=== PATIENT | female | born 1990 | race Hispanic/Latino ===

== ENCOUNTER 2021-08-23 11:17 | Outpatient (CLI) | payer OTHER ==
[2021-08-23 14:17] LABS: Hemoglobin 13.5 g/dL (12.0-15.5); Mean Corpuscular HGB CONC 33.7 g/dL (32.0-36.0); Mean Corpuscular Hemoglobin 30.4 pg (27.0-33.0); Mean Corpuscular Volume 90.3 fl (81.6-98.3); Mean Platelet Volume 10.7 fl (7.4-10.4); Platelet Count 348 10x3/uL (150-450); RBC Distribution Width 14.6 % (11.5-14.5); Red Blood Cell (RBC) Count 4.44 10x6/uL (3.90-5.03); White Blood Cell (WBC) Count 9.5 10x3/uL (3.5-10.5)
[2021-08-23 14:44] LABS: SARS-CoV-2 NAA Rapid Test Not Detected (NotDetected)
[2021-08-23 14:46] LABS: HIV (1/2) Antibody/Antigen Non-Reactive (NonReactive); HIV 1/2 INDEX 0.08 S/CO (<1.00); Syphilis Antibody Nonreactive (Nonreactive); Syphilis Antibody Index 0.03 S/CO (<1.00 Non-Reactive)
== END 2021-08-23 11:18 | disposition home or self-care (01) ==
LOC: CSHLAB 11:17
PROVIDERS: ATTEND Family Medicine
DX: Z01.812 Encounter for preprocedural laboratory examination (principal); Z20.822 Contact with and (suspected) exposure to COVID-19; O32.1XX0 Maternal care for breech presentation, not applicable or unspecified
CPT/HCPCS: 85027; 86780; 86850; 86900; 86901; 87389; U0002

== ENCOUNTER 2021-08-24 08:59 | Inpatient (IN) | payer OTHER ==
[2021-08-24] MEDS ORDERED: Phenylephrine 40 MG/NS 250 ML 250 ML ONE (11:50)
[2021-08-24] MEDS ORDERED: Ondansetron PF 4 MG/2 ML Vial ONE (11:50)
[2021-08-24] MEDS ORDERED: Ketorolac Tromethamine 30 MG/ML VIAL ONE (11:50)
[2021-08-24] MEDS ORDERED: Metoclopramide HCl 10 MG/2 ML VIAL ONE (11:50)
[2021-08-24] MEDS ORDERED: Dexamethasone 4 mg/ml Vial ONE (11:50)
[2021-08-24] MEDS ORDERED: Oxytocin 10 UNITS/ML VIAL ONE ×2 (11:51→13:04)
[2021-08-24] MEDS ORDERED: Morphine PF 10 MG/10 ML VIAL ONE (11:52)
[2021-08-24] MEDS ORDERED: Ondansetron PF 4 MG/2 ML Vial IVP PRN ×3 (11:59→15:22)
[2021-08-24] MEDS ORDERED: Famotidine/PF 20 mg/2ml Vial SLOW IVP PRN (11:59)
[2021-08-24] MEDS ORDERED: hydrALAZINE 20 MG/ML VIAL SLOW IVP PRN ×2 (11:59→15:22)
[2021-08-24] MEDS ORDERED: Promethazine HCl 25 MG/ML VIAL IM PRN ×2 (11:59→12:05)
[2021-08-24] MEDS ORDERED: Bicitra 30 ML UDCUP PO PRN (11:59)
[2021-08-24] MEDS ORDERED: Lactated Ringer's 1,000 ML IV SCH (11:59)
[2021-08-24] MEDS ORDERED: ceFAZolin 2 GM/Dextrose 50 ML 2 GM in Premix Bag 1 BAG IVPB SCH (11:59)
[2021-08-24] MEDS ORDERED: ceFAZolin 2 GM/Dextrose 50 ML IVPB ONE (12:01)
[2021-08-24] MEDS ORDERED: Meperidine HCl/PF 25 MG/ML VIAL SLOW IVP PRN (12:05)
[2021-08-24] MEDS ORDERED: Hydrocerin (Eucerin) Cream 120 gm Jar TOP PRN (12:05)
[2021-08-24] MEDS ORDERED: Fentanyl 100 MCG/2 ML VIAL SLOW IVP PRN (12:05)
[2021-08-24] MEDS ORDERED: Naloxone HCl 0.4 mg/ml Vial IVP PRN ×2 (12:05)
[2021-08-24] MEDS ORDERED: diphenhydrAMINE 50 MG/ML VIAL IVP PRN (12:05)
[2021-08-24] MEDS ORDERED: Promethazine HCl 25 MG SUPP PR PRN (12:05)
[2021-08-24] MEDS ORDERED: Naloxone HCl 0.4 mg/ml Vial IV PRN (12:05)
[2021-08-24] MEDS ORDERED: Ondansetron HCl/PF 4 MG/2 ML Vial IVP PRN (12:05)
[2021-08-24] MEDS ORDERED: Famotidine/PF 20 mg/2ml Vial ONE (12:07)
[2021-08-24] MEDS ORDERED: Communication Order-Pharmacy FS SCH (12:15)
[2021-08-24] MEDS ORDERED: diphenhydrAMINE 25 MG CAP PO PRN (15:22)
[2021-08-24] MEDS ORDERED: NS w/ Oxytocin 30 units 500 ML IV SCH (15:22)
[2021-08-24] MEDS ORDERED: Boostrix 0.5 ML (Tdap) VIAL IM ONE (15:22)
[2021-08-24] MEDS ORDERED: Lanolin Ointment 7 GM TUBE TOP PRN (15:22)
[2021-08-24] MEDS ORDERED: Bisacodyl 10 MG SUPP PR PRN (15:22)
[2021-08-24] MEDS ORDERED: Meperidine HCl/PF 25 MG/ML VIAL ONE (16:05)
[2021-08-24 17:16] VITALS: BMI 34.4
[2021-08-24] MEDS ORDERED: Ketorolac Tromethamine 30 MG/ML VIAL IVP PRN (19:00)
[2021-08-24] MEDS: Ketorolac Tromethamine 30 MG/ML VIAL IVP SCH (19:58)
[2021-08-24] MEDS: Docusate 100 MG CAP PO SCH (23:11)
[2021-08-24] MEDS: Ferrous Sulfate 325 MG TAB PO SCH (23:12)
[2021-08-25] MEDS: Ketorolac Tromethamine 30 MG/ML VIAL IVP SCH ×2 (01:32→06:30)
[2021-08-25 04:51] LABS: Hemoglobin 11.9 g/dL (12.0-15.5); Mean Corpuscular HGB CONC 33.8 g/dL (32.0-36.0); Mean Corpuscular Hemoglobin 30.7 pg (27.0-33.0); Mean Platelet Volume 10.2 fl (7.4-10.4); Platelet Count 291 10x3/uL (150-450); Red Blood Cell (RBC) Count 3.87 10x6/uL (3.90-5.03); White Blood Cell (WBC) Count 15.2 10x3/uL (3.5-10.5)
[2021-08-25 05:10] LABS: Hep B Surf Ag Non-Reactive S/CO (NonReactive)
[2021-08-25 05:38] LABS: HBSAg Index 0.23 S/CO (0-0.99)
[2021-08-25] MEDS: Ferrous Sulfate 325 MG TAB PO SCH ×2 (11:02→21:23)
[2021-08-25] MEDS: Prenatal Vitamin 1 TAB PO SCH (12:44)
[2021-08-25] MEDS: HYDROcodone/Acetaminophen 5/325 mg Tablet PO PRN ×2 (12:45→21:44)
[2021-08-25] MEDS: Docusate 100 MG CAP PO SCH ×2 (12:46→21:43)
[2021-08-25] MEDS: Ibuprofen 800 MG TAB PO SCH ×2 (15:01→21:43)
[2021-08-25] MEDS: Simethicone Chewable 80 MG TAB PO PRN (21:43)
[2021-08-26] MEDS: Ibuprofen 800 MG TAB PO SCH ×3 (06:12→21:20)
[2021-08-26] MEDS: HYDROcodone/Acetaminophen 5/325 mg Tablet PO PRN ×5 (06:12→23:01)
[2021-08-26] MEDS: Simethicone Chewable 80 MG TAB PO PRN ×2 (06:13→23:01)
[2021-08-26] MEDS: Docusate 100 MG CAP PO SCH ×2 (08:52→21:20)
[2021-08-26] MEDS: Prenatal Vitamin 1 TAB PO SCH (08:52)
[2021-08-26] MEDS: Ferrous Sulfate 325 MG TAB PO SCH ×2 (08:52→20:45)
[2021-08-27] MEDS: HYDROcodone/Acetaminophen 5/325 mg Tablet PO PRN ×2 (05:38→10:15)
[2021-08-27] MEDS: Simethicone Chewable 80 MG TAB PO PRN (05:38)
[2021-08-27] MEDS: Ibuprofen 800 MG TAB PO SCH (05:39)
[2021-08-27] MEDS: Ferrous Sulfate 325 MG TAB PO SCH (07:17)
[2021-08-27] MEDS: Docusate 100 MG CAP PO SCH (08:16)
[2021-08-27] MEDS: Prenatal Vitamin 1 TAB PO SCH (08:16)
[2021-08-27 08:21] VITALS: BP 96/56; TEMP 98.2
== END 2021-08-27 12:30 | disposition home or self-care (01) | DRG 788 ==
LOC: CSHLD 08:59 → CSHPED 17:35 → CSHPP 08-26 18:25
PROVIDERS: ADMIT Family Medicine; ATTEND Family Medicine
PROC: 10D00Z1 Extraction of Products of Conception, Low, Open Approach (ICD-10-PCS; principal; 2021-08-24)
DX: O32.8XX0 Maternal care for other malpresentation of fetus, not applicable or unspecified (principal); Z3A.39 39 weeks gestation of pregnancy; Z37.0 Single live birth; O99.214 Obesity complicating childbirth; E66.9 Obesity, unspecified
CPT/HCPCS: 36415; 51702; 85027; 86780; 86850; 86900; 86901; 87340; 87389; J1100; J1885; J2175; J2274; J2405; J2590; J2765; U0002

== ENCOUNTER 2021-12-09 11:14 | Outpatient (CLI) | payer OTHER ==
[2021-12-09 12:05] LABS: BHCG - Serum Negative (NEGATIVE); Pregs Control Background? CLEAR/WHITE (CLR/WHITE); Pregs Control Bar Appear? YES (CONTROL BAR)
[2021-12-09 12:08] LABS: Mean Corpuscular HGB CONC 33.9 g/dL (32.0-36.0); Mean Corpuscular Hemoglobin 31.2 pg (27.0-33.0); Mean Platelet Volume 9.1 fl (7.4-10.4); Platelet Count 380 10x3/uL (150-450); RBC Distribution Width 13.2 % (11.5-14.5); Red Blood Cell (RBC) Count 4.49 10x6/uL (3.90-5.03); White Blood Cell (WBC) Count 10.9 10x3/uL (3.5-10.5)
[2021-12-09 12:10] LABS: Anion Gap 14 mmol/L (10-20); BUN (Urea Nitrogen) 15 mg/dL (7.0-18.7); Calc. Creatinine Clearance 0 mL/min (70-130); Calcium 9.6 mg/dL (7.8-10.44); Carbon Dioxide 22 mmol/L (22-29); Chloride 107 mmol/L (98-107); Glucose 97 mg/dL (70-105); Potassium 4.1 mmol/L (3.5-5.1); Sodium 139 mmol/L (136-145)
== END 2021-12-09 11:15 | disposition home or self-care (01) ==
LOC: CSHLAB 11:14
PROVIDERS: ATTEND Podiatrist Foot & Ankle Surgery
DX: Z01.812 Encounter for preprocedural laboratory examination (principal); Z20.822 Contact with and (suspected) exposure to COVID-19; M25.871 Other specified joint disorders, right ankle and foot
CPT/HCPCS: 80048; 84703; 85027; U0003; U0005

== ENCOUNTER 2021-12-14 09:48 | Day surgery (SDC) | payer OTHER ==
[2021-12-12 11:11] VITALS: BMI 30.5
[2021-12-14] MEDS ORDERED: Bupivacaine PF 0.5% 30 ML VIAL ONE (10:10)
[2021-12-14] MEDS ORDERED: Lidocaine 1% MPF 2 ML VIAL ONE (10:16)
[2021-12-14] MEDS ORDERED: Neomycin-Polymyxin 1 ML AMP ONE (10:16)
[2021-12-14] MEDS ORDERED: PROPOFOL 20 ML ONE (11:32)
[2021-12-14] MEDS ORDERED: Fentanyl 100 MCG/2 ML VIAL ONE ×2 (11:32→13:14)
[2021-12-14] MEDS ORDERED: Lidocaine 1% PF 5 ML VIAL ONE (11:35)
[2021-12-14] MEDS ORDERED: Ondansetron PF 4 MG/2 ML Vial ONE (11:35)
[2021-12-14] MEDS ORDERED: Dexamethasone 4 mg/ml Vial ONE ×3 (11:35→12:45)
[2021-12-14] MEDS ORDERED: ceFAZolin 2 GM/Dextrose 50 ML IVPB ONE (11:50)
[2021-12-14] MEDS ORDERED: Ketorolac Tromethamine 30 MG/ML VIAL ONE (12:03)
[2021-12-14] MEDS ORDERED: Midazolam HCl 2 mg/2 ml Vial ONE (12:05)
== END 2021-12-14 14:17 | disposition home or self-care (01) ==
LOC: CSHSDC 09:48
PROVIDERS: ATTEND Podiatrist Foot & Ankle Surgery
PROC: 0JBN0ZZ Excision of Right Lower Leg Subcutaneous Tissue and Fascia, Open Approach (ICD-10-PCS; principal; 2021-12-14)
DX: D21.21 Benign neoplasm of connective and other soft tissue of right lower limb, including hip (principal); M25.571 Pain in right ankle and joints of right foot
CPT/HCPCS: J0690; J1100; J1885; J2250; J2405; J2704; J3010; S0020